=== PATIENT | male | born 1940 | race Caucasian/White ===

== ENCOUNTER → 2018-08-19 | Day surgery (SDC) | payer MEDICARE ==
[2016-11-04 16:52] VITALS: Ht 177.8 cm; Wt 82.1 kg
[2018-08-13 10:59] LABS: PLATELET COUNT, AUTOMATED 276 K/uL (150-450)
--- NOTE | 2018-08-13 11:14 | EKG ---
FACILITY: [facility] PATIENT NAME: FANY VILLA : [id number] MR: [id number] V: [id number] EXAM DATE: ORDERING PHYSICIAN: SKYLAR LOPEZ TECHNOLOGIST: Test Reason : pre-op Blood Pressure : / mmHG Vent. Rate : 061 BPM Atrial Rate : 061 BPM P-R Int : 186 ms QRS Dur : 100 ms QT Int : 416 ms P-R-T Axes : 051 054 060 degrees QTc Int : 418 ms Sinus rhythm Otherwise normal ECG No previous ECGs available Confirmed by HUNTER GARNER ([id number]) on 08/13/2018 8:41:31 PM Referred By: Confirmed By:HUNTER GARNER
--- NOTE | 2018-08-18 12:26 | HISTORY AND PHYSICAL ---
DATE OF ADMISSION: August 19, 2018 CHIEF COMPLAINT Right inguinal hernia. HISTORY OF PRESENT ILLNESS Patient is a 77-year-old white male with an approximately two to three month history of right groin discomfort with burning and bulge. He states the discomfort increases with standing and movement and he has no problems at rest. He denies chronic cough, obstructive urinary symptoms or constipation. Physical exam in the office revealed a reducible right inguinal hernia. He is now being brought to the operating room for planned repair. The significant risks and benefits were discussed including bleeding, infection, damage to adjacent structures, recurrence of hernia and chronic numbness and/or discomfort at the surgical site. PAST MEDICAL HISTORY * Noninsulin dependent diabetes. * BPH. * History of kidney stones. * History of elevated PSA. PAST SURGICAL HISTORY * Ankle fracture in 1983. * Rotator cuff in 1980. * Right lower pole extracorporeal shock wave lithotripsy in 2011. * Transrectal ultrasound of prostate in 2007. * Open simple retropubic prostatectomy in October 2016. ALLERGIES AVODART, FINASTERIDE, LEVAQUIN and STRAWBERRIES. CURRENT MEDICATIONS None. FAMILY HISTORY Noncontributory. REVIEW OF SYSTEMS Patient denies chest pain, bleeding disorder, productive cough, chronic headaches, dyspnea on exertion or cardiac history. PHYSICAL EXAMINATION GENERAL: Patient is a well-developed, well-nourished white male in no acute distress. HEENT: Normocephalic/atraumatic. CHEST: Clear to auscultation bilaterally. CV: Regular rate and rhythm. ABDOMEN: Soft, nontender. No masses palpated. : Normal appearing penis. He has a right bulging inguinal hernia. RECTAL: Deferred. EXTREMITIES: No cyanosis, clubbing or edema. NEUROLOGICAL: Nonfocal. ASSESSMENT Right inguinal hernia. PLAN Right inguinal hernia repair. [facility]
[~2018-08-19] VITALS: Ht 177.8 cm; Wt 82.1 kg
[~2018-08-19] MED LIST: ASP81 PO; BET25 PO; CEFU250T11 PO; DEXAMETHASONE SOD 4 MG/ML VIAL ONE; DIA2 PO; DOC100 PO; DOCU-416 PO; FAM20 PO; FAMOTIDINE 20 MG TAB PO ONE; FINA5TAB64 PO; HYDR-317 PO; HYDR-653 PO; IBU600 PO; IBUP600T22 PO; KETAMINE HCL 200 MG/20 ML MDV ONE; KETOROLAC 30 MG/ML VIAL ONE; LABETALOL HCL 100 MG/20ML VIAL ONE; LEV500 PO; LIDOCAINE 2% JELLY 5 ML TUBE ONE; LIDOCAINE MPF 1% 5 ML VIAL ONE; LIDOCAINE/SOD BICARB 8.4% SYR ID ONE; LOR5 PO; MECL-205 PO; METF-450 PO; MIDAZOLAM 2 MG/2 ML VIAL IVP PRN; NITR-105 PO; NORMOSOL R SOLN(*) 1000 ML BAG 1,000 ML IV PRN; ONDANSETRON 4 MG/2 ML VIAL ONE; OXYB10TA21 PO; PHENA200 PO; PROPOFOL EMUL(*) 10MG/ML 20 ML 20 ML ONE; ROCURONIUM BROM 10 MG/ML 5 ML ONE; ROPIVACAINE 0.2% 20 ML VIAL ONE; TAMS0.4C76 PO; ceFAZolin(*) 1 GM VIAL 1 GM in NS(*) 0.9% 100 ML ADDVANT BAG 100 ML IVPB ONE; ceFAZolin(*) 1 GM VIAL 1 GM, GENTAMICIN(*) 80 MG/2 ML VIAL 60 MG in NS 0.9% IRRIGATION ... IR ONE; fentaNYL CITR 250 MCG/5 ML AMP ONE
[2018-08-19 10:40] VITALS: BP 156/89
[2018-08-19 15:25] VITALS: BP 133/74
[2018-08-19 15:30] VITALS: BP 136/70
[2018-08-19 15:45] VITALS: BP 143/72
[2018-08-19 15:52] VITALS: BP 143/82
[2018-08-19 15:53] VITALS: BP 135/79
--- NOTE | 2018-08-19 17:02 | OPERATIVE REPORT 1 ---
EVENT DATE: August 19, 2018 SURGEON: Giorgi Anaya MD ANESTHESIOLOGIST: Bishnu Topete MD ANESTHESIA: General anesthetic. PREOPERATIVE DIAGNOSIS Right inguinal hernia. POSTOPERATIVE DIAGNOSES 1. Cord lipoma. 2. Right indirect inguinal hernia. 3. Right direct inguinal hernia. PROCEDURES PERFORMED 1. Removal of right cord lipoma. 2. Right indirect hernia repair by high ligation of hernia sac. 3. Right direct hernia repair with Viviane-type mesh repair. ESTIMATED BLOOD LOSS 10 mL INTRAVENOUS FLUIDS Crystalloids. DRAINS None. COMPLICATIONS None. PATHOLOGY Hernia sac and cord lipoma for primary analysis. CONDITION Patient taken to the recovery room awake, in stable condition. STATEMENT OF MEDICAL NECESSITY Patient is a 77-year-old white male who approximately two to three months ago began experiencing right lower quadrant burning and discomfort after physical activity. Physical exam revealed a reducible right inguinal hernia. He is now being brought to the operating room for repair. Specific risks and benefits were explained including bleeding, infection, damage to adjacent structures including vasa, vessels, and nerves, recurrence of hernia, and need for a secondary procedure. Also, neurapraxia with chronic pain and/or paresthesias were also explained. DESCRIPTION OF OPERATION PERFORMED Patient was brought to the operating room. After general anesthetic was obtained, he was placed supine on the operating room table. He was prepped and draped sterilely. A 5 cm right lower quadrant skin incision was made just anterior to the external ring, proceeding out superolaterally along the lines of Langerhans with a 15 blade knife. This was taken down through the subcutaneous tissues with electrocautery until the aponeurosis of the external oblique was encountered. This was incised parallel with its fibers to expose the inguinal contents. The ilioinguinal nerve was identified and retracted to the side. The cord was isolated in the pubic tubercle with a Muna drain. Inspection revealed extreme attenuation of the hernia floor. He was also noted to have a moderate cord lipoma and an indirect component as well with the hernia sac down to almost the external ring area along the cord. At this point, the cord lipoma was dissected off the superolateral aspect of the cord where it was taken down to the internal ring. It was doubly cross-clamped, sharply removed, and sent for analysis. The lipoma was then doubly tied with free silk ties around a right angle clamp. Following this, the indirect hernia sac was identified superomedially and was dissected off the cord structures as well, including the cremasteric fibers to just inside the internal ring. The sac was then opened. There were no intra-abdominal contents or anomalies inside the cord sac. It was twisted upon itself down into the internal ring. It was doubly cross-clamped with a right angle, sharply removed, and sent for analysis. The end was fulgurated. I made a stitch tie with #1 silk. It was done on the more distal clamp and a free tie placed on the more proximal clamp. After release of the last right-angled clamp, the hernia sac stump retracted nicely into the internal ring. At this point, a piece of mesh was prepared on the back table after measuring the defect and cut to the appropriate size. It was secured in place with running 2-0 PDS stitch starting at the pubic tubercle and proceeding along the inguinal ligament on the inferolateral aspect and along the transversalis fascia along the medial superior aspect. An incision was made on the sac at its lateral edge to encompass the cord as it exited the internal ring. The mesh was reapproximated out laterally to this area with some interrupted 2-0 PDS. At this point, the wound was irrigated with copious amounts of antibiotic solution. The patient was next given a local with 0.2% ropivacaine along the cord, fascia, and skin edges. At this point, the Muna drain was removed around the cord. It was placed back in its normal anatomical position along with the ilioinguinal nerve. The aponeurosis of the external oblique was closed with a running 2-0 Vicryl. Subcuticular tissues were reapproximated with interrupted 3-0 chromic. The skin was closed with a running 4-0 Vicryl stitch in the subcutaneous areas. Skin adhesive was placed along the skin edge. A sterile fluff dressing was applied at the conclusion of the case. The patient was awakened in the operating room and taken to the recovery area in stable condition. PLAN Will allow the patient to be discharged home today on [place] alternating with Motrin for the next 36 hours. He will also be given a prescription for Colace and instructed to apply a scrotal support and ice packs for the next 36 hours. Will plan to see him in the Urology Clinic in four to six weeks for followup. ETHEL
== END ==
LOC: OR 00:50
PROVIDERS: ATTEND Urology
DX: K40.90 Unilateral inguinal hernia, without obstruction or gangrene, not specified as recurrent (principal); D17.6 Benign lipomatous neoplasm of spermatic cord; E11.9 Type 2 diabetes mellitus without complications; N40.0 Benign prostatic hyperplasia without lower urinary tract symptoms
CPT/HCPCS: 36415; 49505; 55520; 81001; 85025; 87088; 93005; A9270; J0690; J1100; J1885; J2001; J2405; J2704; J2795; J3010; J3490; J7050; 82040; 82247; 82310; 82374; 82435; 82565; 82947; 84075; 84132; 84155; 84295; 84450; 84460; 84520; 88302; 88304; C1781

== ENCOUNTER → 2018-09-17 | Outpatient (REF) | payer MEDICARE ==
[2016-11-04 16:52] VITALS: BMI 26.0
[~2018-09-17] MED LIST changes: -DEXAMETHASONE SOD 4 MG/ML VIAL ONE; -FAMOTIDINE 20 MG TAB PO ONE; -KETAMINE HCL 200 MG/20 ML MDV ONE; -KETOROLAC 30 MG/ML VIAL ONE; -LABETALOL HCL 100 MG/20ML VIAL ONE; -LIDOCAINE 2% JELLY 5 ML TUBE ONE; -LIDOCAINE MPF 1% 5 ML VIAL ONE; -LIDOCAINE/SOD BICARB 8.4% SYR ID ONE; -MIDAZOLAM 2 MG/2 ML VIAL IVP PRN; -NORMOSOL R SOLN(*) 1000 ML BAG 1,000 ML IV PRN; -ONDANSETRON 4 MG/2 ML VIAL ONE; -PROPOFOL EMUL(*) 10MG/ML 20 ML 20 ML ONE; -ROCURONIUM BROM 10 MG/ML 5 ML ONE; -ROPIVACAINE 0.2% 20 ML VIAL ONE; -ceFAZolin(*) 1 GM VIAL 1 GM in NS(*) 0.9% 100 ML ADDVANT BAG 100 ML IVPB ONE; -ceFAZolin(*) 1 GM VIAL 1 GM, GENTAMICIN(*) 80 MG/2 ML VIAL 60 MG in NS 0.9% IRRIGATION ... IR ONE; -fentaNYL CITR 250 MCG/5 ML AMP ONE
== END ==
LOC: ZZSENDIN 13:36
PROVIDERS: ATTEND Urology
DX: Z48.01 Encounter for change or removal of surgical wound dressing (principal)
CPT/HCPCS: 87070; 87073